=== PATIENT | female | born 2000 | race African-American/Black ===

== ENCOUNTER 2020-10-21 23:27 | Emergency (ER) | payer OTHER ==
[~2020-10-21] VITALS: Ht 175.3 cm; Wt 104.3 kg
[~2020-10-21 23:27] MED LIST: ACYCLOVIR 400400 MG PO; CAMILA0.35 MG PO; CIPRO250 M2 PO; CLINDAMYCIN HCL75 MG PO; CLONIDINE0.1 PO; CYPROHEPTADINE 44 MG PO; NEXAVAR200 MG PO; NORVASC10 MG PO; OXYCONTIN10 M1 PO; PERIACTIN; VFEND50 MG PO
[2020-10-22 00:26] LABS: ABSOLUTE EOSINOPHILS 0.2 thou/uL (0.0-0.7); EOSINOPHILS 1.3 %; HEMOGLOBIN 13.9 gm/dL (12.0-15.0); MCHC 33.9 g/dL (28.0-37.0)
[2020-10-22 00:27] LABS: ABSOLUTE BASOPHILS 0.1 thou/uL (0.0-0.2); ABSOLUTE LYMPHOCYTES 4.3 thou/uL (0.8-5.3); ABSOLUTE MONOCYTES 0.8 thou/uL (0.0-1.2); ABSOLUTE NEUTROPHILS 7.6 thou/uL (1.6-8.1); BASOPHILS 0.7 %; HEMATOCRIT 41.2 % (37.0-47.0); LYMPHOCYTES 33.4 %; MCH 28.9 pg (26.0-34.0); MCV 85.5 fL (80.0-100.0); MONOCYTES 6.1 %; MPV 8.7 fl. (7.2-11.1); NUCLEATED RBCS 0 /100WBC; PLATELET COUNT* 326 thou/uL (150-400); POLYS 58.5 %; RBC 4.82 mil/uL (4.20-5.00); RDW-CV 13.8 % (10.5-14.5); WBC 12.9 thou/uL (4.0-11.0)
[2020-10-22 00:33] LABS: CALCIUM 8.9 mg/dL (8.5-10.1); POTASSIUM 3.5 mmol/L (3.5-5.1)
[2020-10-22 00:35] LABS: PROTIME 10.5 Seconds (9.20-11.50)
[2020-10-22 00:43] LABS: ALBUMIN 3.7 g/dL (3.4-5.0); TOTAL BILIRUBIN 0.2 mg/dL (<0.1-1.0); TOTAL PROTEIN 8.2 g/dL (6.4-8.2)
[2020-10-22 02:39] VITALS: BP 128/97
--- NOTE | 2020-10-22 10:50 | EKG ---
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
== END 2020-10-22 02:40 | disposition home or self-care (01) ==
LOC: M.ERS 23:27
PROVIDERS: Emergency Medicine
DX: R04.2 Hemoptysis (principal); Z20.822 Contact with and (suspected) exposure to COVID-19; J45.909 Unspecified asthma, uncomplicated; Z88.0 Allergy status to penicillin

== ENCOUNTER 2020-11-30 16:45 | Emergency (ER) | payer OTHER ==
[~2020-11-30] VITALS: Ht 175.3 cm; Wt 103.4 kg
[2020-11-30] MEDS ORDERED: NORCO5 PO (17:09)
[2020-11-30] MEDS ORDERED: PERCOCET 5-3251 EACH PO (18:57)
[2020-11-30 20:50] VITALS: BP 145/94
== END 2020-11-30 20:50 | disposition home or self-care (01) ==
LOC: M.ERS 16:45
DX: S52.121A Displaced fracture of head of right radius, initial encounter for closed fracture (principal); S52.091A Other fracture of upper end of right ulna, initial encounter for closed fracture; J45.909 Unspecified asthma, uncomplicated; Z88.0 Allergy status to penicillin; W18.39XA Other fall on same level, initial encounter; Y93.89 Activity, other specified; Y92.22 Religious institution as the place of occurrence of the external cause; Y99.8 Other external cause status

== ENCOUNTER 2021-08-17 15:54 | Emergency (ER) | payer OTHER ==
[~2021-08-17] VITALS: Ht 175.3 cm; Wt 111.1 kg
[~2021-08-17 15:54] MED LIST changes: +NORCO5 PO; +PERCOCET 5-3251 EACH PO
[2021-08-17 17:13] LABS: ABSOLUTE BASOPHILS 0.1 thou/uL (0.0-0.2); ABSOLUTE EOSINOPHILS 0.1 thou/uL (0.0-0.7); ABSOLUTE LYMPHOCYTES 2.4 thou/uL (0.8-5.3); ABSOLUTE MONOCYTES 0.5 thou/uL (0.0-1.2); ABSOLUTE NEUTROPHILS 13.7 thou/uL (1.6-8.1); BASOPHILS 0.6 %; EOSINOPHILS 0.3 %; HEMATOCRIT 44.1 % (37.0-47.0); HEMOGLOBIN 14.9 gm/dL (12.0-15.0); LYMPHOCYTES 14.5 %; MCH 28.5 pg (26.0-34.0); MCHC 33.8 g/dL (28.0-37.0); MCV 84.2 fL (80.0-100.0); MONOCYTES 3.1 %; MPV 8.6 fl. (7.2-11.1); NUCLEATED RBCS 0 /100WBC; PLATELET COUNT* 376 thou/uL (150-400); POLYS 81.5 %; RBC 5.24 mil/uL (4.20-5.00); RDW-CV 13.7 % (10.5-14.5); WBC 16.8 thou/uL (4.0-11.0)
[2021-08-17 17:21] LABS: CALCIUM 9.1 mg/dL (8.5-10.1); POTASSIUM 4.3 mmol/L (3.5-5.1)
[2021-08-17 17:25] LABS: APTT 26.4 Seconds (25.0-31.3); PROTIME 10.7 Seconds (9.20-11.50)
[2021-08-17 17:26] LABS: ALBUMIN 3.9 g/dL (3.4-5.0); TOTAL BILIRUBIN 0.3 mg/dL (<0.1-1.0); TOTAL PROTEIN 8.4 g/dL (6.4-8.2)
[2021-08-17 17:41] LABS: INFLUENZA A ANTIGEN Negative (Negative); INFLUENZA B ANTIGEN Negative (Negative)
[2021-08-17 18:08] LABS: URINE BILIRUBIN NEGATIVE (Negative); URINE BLOOD NEGATIVE (Negative); URINE CLARITY CLEAR; URINE COLOR YELLOW; URINE GLUCOSE-RANDOM NEGATIVE (Negative); URINE KETONES NEGATIVE (Negative); URINE LEUKOCYTES-REFLEX NEGATIVE (Negative); URINE NITRITE-REFLEX NEGATIVE (Negative); URINE PROTEIN NEGATIVE (Negative); URINE SPECIFIC GRAVITY >= 1.030 (1.005-1.030); URINE UROBILINOGEN 0.2 E.U./dl (0.2-1.0)
[2021-08-17 18:17] LABS: ESR (SEDRATE) 16 mm/hr (0-20)
[2021-08-17 20:15] VITALS: BP 100/66
--- NOTE | 2021-08-18 09:46 | EKG ---
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 Manager: CARIAS : 2000 Requested By: Radha Cagle Order Number: [id number] : Roscoe Albarran Measurements Intervals [place] Rate: 101 P: 40 [place]: 191 QRS: 67 QRSD: 93 T: 49 QT: 345 QTc: 448 Interpretive Statements Sinus tachycardia Borderline ST elevation, inferior leads Compared to ECG 10/21/2020 23:35:11 Sinus rate has increased Electronically Signed On 08-18-2021 9:46:16 SENIOR BUSINESS DEVELOPMENT ANALYST by Roscoe Albarran [email or web address] <ELECTRONICALLY SIGNED> By: Roscoe Albarran MD, [facility] 08/18/21 0946 1609 1609 Roscoe Albarran MD, [facility] /EPI
== END 2021-08-17 20:15 | disposition home or self-care (01) ==
LOC: M.ERS 15:54
PROVIDERS: Nurse Practitioner Family
DX: R51.9 Headache, unspecified (principal); Z20.822 Contact with and (suspected) exposure to COVID-19; R03.0 Elevated blood-pressure reading, without diagnosis of hypertension; H53.8 Other visual disturbances; R11.0 Nausea; J45.909 Unspecified asthma, uncomplicated; R10.9 Unspecified abdominal pain; Z88.0 Allergy status to penicillin; Z88.5 Allergy status to narcotic agent; Z79.899 Other long term (current) drug therapy; Z88.8 Allergy status to other drugs, medicaments and biological substances